=== PATIENT | male | born 1995 | race Caucasian/White ===

== ENCOUNTER 2016-11-01 07:25 | Emergency (ER) | payer SELFPAY ==
[~2016-11-01 07:25] MED LIST: BACL10TA PO; GABA600T2 PO; QUET25TA5 PO; TRAM50TA PO
--- NOTE | 2016-11-01 08:22 | EKG ---
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
[2016-11-01] MEDS ORDERED: NALOXONE 0.4 MG/ML VIAL. IV ONE (09:40)
[2016-11-01] MEDS ORDERED: NALOXONE 2 MG/2 ML DISP.SYRIN. IV ONE (09:50)
[2016-11-01 10:45] VITALS: BP 104/63
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
== END 2016-11-01 12:30 | disposition home or self-care (01) ==
LOC: ER 07:25
DX: R41.82 Altered mental status, unspecified (principal); F20.9 Schizophrenia, unspecified; F41.9 Anxiety disorder, unspecified; M79.7 Fibromyalgia; F19.10 Other psychoactive substance abuse, uncomplicated; F12.10 Cannabis abuse, uncomplicated; F17.210 Nicotine dependence, cigarettes, uncomplicated
CPT/HCPCS: 82947; 93005; 96374; 99285; J2310; 99284-25

== ENCOUNTER 2017-05-21 16:58 | Emergency (ER) | payer SELFPAY ==
[~2017-05-21] VITALS: Ht 188 cm; Wt 71.3 kg
[2017-05-21 17:00] VITALS: BP 112/66
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
[2017-05-21] MEDS ORDERED: ONDANSETRON ODT 4 MG TAB.RAPDIS PO ONE (17:15)
[2017-05-21] MEDS ORDERED: HYDROcodone/APAP 5/325MG 1 TAB TABLET PO ONE (17:15)
[2017-05-21 17:40] LABS: BASO # 0.1 x10^3/uL (0.0-0.2); BASO % 1 % (0-3); EOS # 0.2 x10^3/uL (0.0-0.7); EOS % 2 % (0-3); HEMATOCRIT 43.7 % (39.0-53.0); HEMOGLOBIN 14.8 g/dL (13.0-17.5); LYMPH # 1.2 x10^3/uL (1.0-4.8); LYMPH % 11 % (24-48); MEAN CORPUSCULAR HEMOGLOBIN 29 pg (25-35); MEAN CORPUSCULAR HGB CONC 34 g/dL (31-37); MEAN CORPUSCULAR VOLUME 86 fL (79-100); MONO # 0.8 x10^3/uL (0.0-1.1); MONO % 7 % (0-9); NEUT # 8.5 x10^3uL (1.8-7.7); NEUT % 80 % (31-73); PLATELET COUNT 204 x10^3/uL (140-400); RED BLOOD COUNT 5.08 x10^6/uL (4.30-5.70); RED CELL DISTRIBUTION WIDTH 13.1 % (11.5-14.5); WHITE BLOOD COUNT 10.7 x10^3/uL (4.0-11.0)
[2017-05-21 17:49] LABS: AMPHETAMINE/METHAMPHETAMINE NEG (NEG); BARBITURATES NEG (NEG); BENZODIAZEPINES NEG (NEG); CANNABINOIDS POS (NEG); COCAINE NEG (NEG); METHADONE NEG (NEG); OPIATES POS (NEG); PHENCYCLIDINE NEG (NEG)
[2017-05-21 17:50] LABS: BILIRUBIN,URINE NEG (NEG); CLARITY,URINE CLEAR; COLOR,URINE STRAW; GLUCOSE,URINE NEG (NEG)
[2017-05-21 17:51] LABS: BACTERIA,URINE 0 /HPF (0-FEW); NITRITE,URINE NEG (NEG); RBC,URINE RARE /HPF (0-2); SQUAMOUS EPITHELIAL CELL,UR OCC /LPF; UROBILINOGEN,URINE 0.2 mg/dL (0.2 mg/dL); WBC,URINE 0 /HPF (0-4)
[2017-05-21 17:54] LABS: ALBUMIN 3.9 g/dL (3.4-5.0); ALBUMIN/GLOBULIN RATIO 1.3 (1.0-1.7); CALCIUM 8.4 mg/dL (8.5-10.1); GFR 93.4; POTASSIUM 3.9 mmol/L (3.5-5.1); TOTAL BILIRUBIN 0.3 mg/dL (0.2-1.0); TOTAL PROTEIN 6.9 g/dL (6.4-8.2)
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
[2017-05-21] MEDS ORDERED: QUEtiapine 50 MG TABLET. PO ONE (21:00)
--- NOTE | 2017-05-21 22:08 | EKG ---
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
== END 2017-05-21 22:10 | disposition home or self-care (01) ==
LOC: ER 16:58
DX: F20.9 Schizophrenia, unspecified (principal); F84.0 Autistic disorder; S09.90XA Unspecified injury of head, initial encounter; Y04.0XXA Assault by unarmed brawl or fight, initial encounter; Y93.89 Activity, other specified; Y99.8 Other external cause status; Y92.89 Other specified places as the place of occurrence of the external cause
CPT/HCPCS: 36415; 70450; 70486; 72125; 80053; 80307; 81001; 85025; 93005; 99285; G0480; Q0162; G0479

== ENCOUNTER 2017-06-26 18:30 | Emergency (ER) | payer SELFPAY ==
[~2017-06-26] VITALS: Ht 188 cm; Wt 71.3 kg
[2017-06-26] MEDS ORDERED: ONDANSETRON PF 4 MG/2 ML VIAL. ONE (19:30)
[2017-06-26] MEDS ORDERED: ONDANSETRON PF 4 MG/2 ML VIAL. IV ONE (19:30)
[2017-06-26] MEDS ORDERED: IV NORMAL SALINE 1,000ML 1,000 ML IV ONE (19:30)
[2017-06-26 19:45] LABS: BASO % 1 % (0-3); EOS # 0.2 x10^3/uL (0.0-0.7); EOS % 3 % (0-3); HEMATOCRIT 44.5 % (39.0-53.0); HEMOGLOBIN 15.3 g/dL (13.0-17.5); LYMPH # 1.9 x10^3/uL (1.0-4.8); LYMPH % 23 % (24-48); MEAN CORPUSCULAR HEMOGLOBIN 29 pg (25-35); MEAN CORPUSCULAR HGB CONC 35 g/dL (31-37); MEAN CORPUSCULAR VOLUME 84 fL (79-100); MONO # 0.5 x10^3/uL (0.0-1.1); MONO % 6 % (0-9); NEUT # 5.6 x10^3uL (1.8-7.7); NEUT % 67 % (31-73); PLATELET COUNT 189 x10^3/uL (140-400); RED BLOOD COUNT 5.32 x10^6/uL (4.30-5.70); RED CELL DISTRIBUTION WIDTH 13.4 % (11.5-14.5); WHITE BLOOD COUNT 8.3 x10^3/uL (4.0-11.0)
[2017-06-26 19:48] LABS: ALBUMIN 4.3 g/dL (3.4-5.0); ALBUMIN/GLOBULIN RATIO 1.5 (1.0-1.7); CALCIUM 8.9 mg/dL (8.5-10.1); GFR 93.4; POTASSIUM 3.4 mmol/L (3.5-5.1); TOTAL BILIRUBIN 0.6 mg/dL (0.2-1.0); TOTAL PROTEIN 7.2 g/dL (6.4-8.2)
[2017-06-26] MEDS ORDERED: ONDA4TAB10 SL (20:09)
--- NOTE | 2017-06-26 20:10 | PHYS DOC ---
Past History Past Medical History: Bipolar, Schizophrenia Past Surgical History: Other Smoking: Cigarettes, Less than 1pk/day Alcohol Use: Occasionally Drug Use: None Adult General Chief Complaint Chief Complaint: ACCIDENTAL INGESTION HPI HPI Patient is a 21-year-old gentleman who presents here today secondary to nausea vomiting confusion and headache. Patient is concerned that he might have water intoxication. Patient reports that he drank three quarters of a gallon of water and half a gallon of water mainly thereafter approximate 1:00 in the afternoon secondary to a drug test that he was trying to pass. Patient reports that approximately 3 PM started having headache and some confusion. Patient denies any history of hypertension diabetes lung liver or kidney pals. Patient reports she smokes tobacco. Does not drink any alcohol. He reports he is quitting all drugs. Patient is allergic to any medications. Patient has any fevers shakes chills. Patient has any chest pain shortness of breath. Patient reports he feels nauseous and vomiting however currently has resolved. Patient has a dysuria frequency or urgency. Patient has any mental health issues. Patient denies any weakness to his upper or lower extremities. Patient has any abdominal pain. Patient reports he is urinating well. Patient has a dysuria frequency or urgency. Review of systems: Constitutional: Denies fever or chills Eyes: Denies change in visual acuity, redness, or eye pain HENT: Denies nasal congestion or sore throat Physical exam: All other systems were reviewed and found to be within normal limits, except as documented in this note. Constitutional: Well developed, well nourished, no acute distress, non-toxic appearance. HENT: Normocephalic, atraumatic, bilateral external ears normal, oropharynx moist, no oral exudates, nose normal. Eyes: PERRLA, EOMI, conjunctiva normal, no discharge. Neck: Normal range of motion, no tenderness, supple, no stridor. Cardiovascular:Heart rate regular rhythm, Lungs & Thorax: Bilateral breath sounds clear to auscultation Abdomen: Bowel sounds normal, soft, no tenderness, no masses, no pulsatile masses. Skin: Warm, dry, no erythema, no rash. Back: No tenderness, no CVA tenderness. Extremities: No tenderness, no cyanosis, no clubbing, ROM intact, no edema. Neurologic: Alert and oriented X 3, normal motor function, normal sensory function, no focal deficits noted. Psychologic: Affect normal, judgement normal, mood normal. Patient's ER physical exam was unremarkable. Patient's alert awake oriented 3. Abdomen was soft nontender no distention no rebound or guarding. Assessment and plan: Patient's ER workup is been unremarkable. Patient presented with symptoms most likely secondary to water intoxication that has likely resolved spontaneously from adequate renal function. Patient's CBC and CMP were within normal limits. Patient has no evidence of hyponatremia at this time. Patient was given 1 L of normal saline and feels much improved. Patient was given Zofran to assist with his nausea and headache. Patient currently reports he feels completely symptomatically feels very comfortable with the plan to be discharged home. All questions were answered. Patient be discharged home with instructions to follow- up with his primary care doctor in 1-2 days. I have instructed the patient on no further utilizing anymore drugs. Current Medications Current Medications Current Medications Medications (Trade) Dose Ordered Sig/Mariza Start Time Stop Time Status Last Admin Dose Admin Ondansetron HCl (Zofran) 4 mg 1X ONCE 06/26/17 19:30 06/26/17 19:36 DC 06/26/17 19:37 4 MG Sodium Chloride 1,000 ml @ 1,000 mls/hr 1X ONCE 06/26/17 19:30 06/26/17 20:29 06/26/17 19:36 1,000 MLS/HR Allergies Allergies Allergies Coded Allergies Type Severity Reaction Last Updated Verified No Known Drug Allergies 04/06/14 No Current Patient Data Lab Results Laboratory Tests Test 06/26/17 19:20 White Blood Count 8.3 x10^3/uL (4.0-11.0) Red Blood Count 5.32 x10^6/uL (4.30-5.70) Hemoglobin 15.3 g/dL (13.0-17.5) Hematocrit 44.5 % (39.0-53.0) Mean Corpuscular Volume 84 fL (79-100) Mean Corpuscular Hemoglobin 29 pg (25-35) Mean Corpuscular Hemoglobin Concent 35 g/dL (31-37) Red Cell Distribution Width 13.4 % (11.5-14.5) Platelet Count 189 x10^3/uL (140-400) Neutrophils (%) (Auto) 67 % (31-73) Lymphocytes (%) (Auto) 23 % (24-48) L Monocytes (%) (Auto) 6 % (0-9) Eosinophils (%) (Auto) 3 % (0-3) Basophils (%) (Auto) 1 % (0-3) Neutrophils # (Auto) 5.6 x10^3uL (1.8-7.7) Lymphocytes # (Auto) 1.9 x10^3/uL (1.0-4.8) Monocytes # (Auto) 0.5 x10^3/uL (0.0-1.1) Eosinophils # (Auto) 0.2 x10^3/uL (0.0-0.7) Basophils # (Auto) 0.0 x10^3/uL (0.0-0.2) Sodium Level 136 mmol/L (136-145) Potassium Level 3.4 mmol/L (3.5-5.1) L Chloride Level 98 mmol/L (98-107) Carbon Dioxide Level 30 mmol/L (21-32) Anion Gap 8 (6-14) Blood Urea Nitrogen 9 mg/dL (8-26) Creatinine 1.0 mg/dL (0.7-1.3) Estimated GFR (Cockcroft-Gault) 93.4 BUN/Creatinine Ratio 9 (6-20) Glucose Level 93 mg/dL (70-99) Calcium Level 8.9 mg/dL (8.5-10.1) Total Bilirubin 0.6 mg/dL (0.2-1.0) Aspartate Amino Transferase (AST) 21 U/L (15-37) Alanine Aminotransferase (ALT) 22 U/L (16-63) Alkaline Phosphatase 48 U/L (46-116) Total Protein 7.2 g/dL (6.4-8.2) Albumin 4.3 g/dL (3.4-5.0) Albumin/Globulin Ratio 1.5 (1.0-1.7) EKG EKG [] Radiology/Procedures Radiology/Procedures [] Course & Med Decision Making Course & Med Decision Making Pertinent Labs and Imaging studies reviewed. (See chart for details) [] Dragon Disclaimer Dragon Disclaimer This electronic medical record was generated, in whole or in part, using a voice recognition dictation system. Departure Departure: Impression: Primary Impression: Vomiting Additional Impressions: Water intoxication Headache Disposition: 01 HOME, SELF-CARE Condition: IMPROVED Referrals: JJ SHAH DO (PCP) Patient Instructions: General Headache Without Cause, Nausea and Vomiting, Water Intoxication Scripts Ondansetron (ZOFRAN ODT) 4 Mg Tab.rapdis 1 TAB SL Q8HRS for NAUSEA, #15 TAB Prov: BERTHA VINES MD 06/26/17 Problem Qualifiers BERTHA VINES MD Jun 26, 2017 20:09
[2017-06-26 20:45] VITALS: BP 127/82
== END 2017-06-26 20:45 | disposition home or self-care (01) ==
LOC: ER 18:36
DX: E87.79 Other fluid overload (principal); R11.2 Nausea with vomiting, unspecified; R51 Headache; F17.210 Nicotine dependence, cigarettes, uncomplicated; F20.9 Schizophrenia, unspecified
CPT/HCPCS: 36415; 80053; 85025; 96361; 96374; 99284; J2405; J7030

== ENCOUNTER 2017-07-10 00:18 | Emergency (ER) | payer SELFPAY ==
[~2017-07-10] VITALS: Ht 188 cm; Wt 71.3 kg
[~2017-07-10 00:18] MED LIST changes: +ONDA4TAB10 SL
[2017-07-10 00:20] VITALS: BP 132/76
[2017-07-10] MEDS ORDERED: KETOROLAC 60 MG/2 ML VIAL. IM ONE ×2 (00:40→01:00)
--- NOTE | 2017-07-10 00:40 | ED.ADGEN ---
Past History Past Medical History: Bipolar, Schizophrenia Past Surgical History: Other Smoking: Cigarettes, Less than 1pk/day Alcohol Use: Occasionally Drug Use: Marijuana Adult General Chief Complaint Chief Complaint " I got scabies.. I am Itching like crazy.. I can't sleep..." HPI HPI Patient is a 21 year old male who presents with above hx and complaints hx scabies exposure and itching. Pt. has some lesions arms, axillary and lower legs. Pt. has been scratching. Pt. very anxious. Pt. driving. Advised could not give benadryl and or doxepin for itching if he was driving. Patient is extremely anxious. Review of Systems Review of Systems Constitutional: Denies fever or chills [] Eyes: Denies change in visual acuity, redness, or eye pain [] HENT: Denies nasal congestion or sore throat [] Respiratory: Denies cough or shortness of breath [] Cardiovascular: No additional information not addressed in HPI [] GI: Denies abdominal pain, nausea, vomiting, bloody stools or diarrhea [] : Denies dysuria or hematuria [] Musculoskeletal: Denies back pain or joint pain [] Integument: Complaints of rash and skin lesions [] Neurologic: Denies headache, focal weakness or sensory changes [] Endocrine: Denies polyuria or polydipsia [] All other systems were reviewed and found to be within normal limits, except as documented in this note. Family History Family History Mother has recently been diagnosed with scabies Current Medications Current Medications Current Medications Medications (Trade) Dose Ordered Sig/[facility] Start Time Stop Time Status Last Admin Dose Admin Doxepin HCl (SINEquan) 50 mg QHS 07/10/17 01:00 Ketorolac Tromethamine (Toradol) 60 mg 1X ONCE 07/10/17 01:00 07/10/17 01:01 Patient refused to stay for medications Allergies Allergies Allergies Coded Allergies Type Severity Reaction Last Updated Verified No Known Drug Allergies 04/06/14 No Physical Exam Physical Exam Constitutional: Well developed, well nourished, in acute distress, non-toxic appearance. [] HENT: Normocephalic, atraumatic, bilateral external ears normal, oropharynx moist, no oral exudates, nose normal. [] Eyes: PERRLA, EOMI, conjunctiva normal, no discharge. [] Neck: Normal range of motion, no tenderness, supple, no stridor. [] Cardiovascular:Heart rate regular rhythm, no murmur [] Lungs & Thorax: Bilateral breath sounds clear to auscultation [] Abdomen: Bowel sounds normal, soft, no tenderness, no masses, no pulsatile masses. [] Skin: Warm, dry, no erythema, scabies-like lesions on axillary, forearms and lower legs Back: No tenderness, no CVA tenderness. [] Extremities: No tenderness, no cyanosis, no clubbing, ROM intact, no edema. [] Neurologic: Alert and oriented X 3, normal motor function, normal sensory function, no focal deficits noted. [] Psychologic: Affect very anxious, judgement normal, mood normal. [] Current Patient Data Vital Signs Vital Signs Date Time Temp Pulse Resp B/P (MAP) Pulse Ox O2 Delivery O2 Flow Rate FiO2 07/10/17 00:20 97.9 92 20 95 Room Air EKG EKG [] Radiology/Procedures Radiology/Procedures [] Course & Med Decision Making Course & Med Decision Making Pertinent Labs and Imaging studies reviewed. (See chart for details). Patient refused Toradol injection because he read somewhere that caused itching. Did not take doxepin because he was driving. Patient did take a prescription Doxepin 25-50 mg 3 times a day as needed for itching. Permethrin cream to apply and retreat in 1 week patient washed all close and linens. Patient to follow-up primary care Dr. Barron [] Final Impression Final Impression 1. Scabies- Exposure 2. Itching[] Problems: Dragon Disclaimer Dragon Disclaimer This electronic medical record was generated, in whole or in part, using a voice recognition dictation system. ANDREE ZAMORA MD Jul 10, 2017 00:40
[2017-07-10] MEDS ORDERED: DOXE50CA PO (00:48)
[2017-07-10] MEDS ORDERED: PERM60CR12 TP (00:48)
[2017-07-10] MEDS ORDERED: DOXEPIN HCL 25 MG CAPSULE PO SCH (01:00)
== END 2017-07-10 00:55 | disposition home or self-care (01) ==
LOC: ER 00:18
DX: B86 Scabies (principal); F20.9 Schizophrenia, unspecified; F31.9 Bipolar disorder, unspecified; F17.210 Nicotine dependence, cigarettes, uncomplicated; F12.10 Cannabis abuse, uncomplicated
CPT/HCPCS: 99283

== ENCOUNTER 2018-02-07 09:13 | Emergency (ER) | payer SELFPAY ==
[~2018-02-07 09:13] MED LIST changes: +DOXE50CA PO; +PERM60CR12 TP
== END 2018-02-07 09:30 | disposition left against medical advice (07) ==
LOC: ER 09:13
DX: F41.9 Anxiety disorder, unspecified (principal); Z53.21 Procedure and treatment not carried out due to patient leaving prior to being seen by health care provider